=== PATIENT | male | born 2000 | race Two or more races ===

== ENCOUNTER 2019-01-31 23:05 | Emergency (ER) | payer OTHER ==
--- NOTE | 2019-02-01 00:36 | ED ---
GI/ HPI - HPI Summary HPI Summary: Patient complains of dull diffuse testicle pain starting this morning. Denies trauma, swelling, redness, fever, cough, sore throat, CP, SOB, N/V/D, abdominal pain, change in urine, change in BM, penile discharge. Denies prior history of same pain. Patient admits to frequent episodes of masturbation last night and this morning. Medical history is none. - History of Current Complaint Chief Complaint: EDUrogenitalProblems Time Seen by Provider: 02/01/19 00:24 Stated Complaint: GROIN PAIN PER PATIENT Hx Obtained From: Patient Onset/Duration: Started Hours Ago Timing: Constant Severity: Mild Current Severity: Mild Pain Intensity: 2 Additional Locations for Males: Testicles Pain Characteristics: Dull Associated Signs and Symptoms: Positive: Negative - Allergy/Home Medications Allergies/Adverse Reactions: Allergies Allergy/AdvReac Type Severity Reaction Status Date / Time peanut Allergy Vomiting Verified 01/31/19 23:09 Home Medications: Home Medications NK [No Home Medications Reported] 02/01/19 [History Confirmed 02/01/19] PMH/Surg Hx/FS Hx/Imm Hx Endocrine/Hematology History: Denies: Hx Anticoagulant Therapy Cardiovascular History: Denies: Hx Pacemaker/ICD History: Denies: Hx Dialysis Sensory History: Denies: Hx Eye Prosthesis Opthamlomology History: Denies: Hx Legally Blind EENT History: Denies: Hx Deafness Neurological History: Denies: Hx Dementia - Immunization History Immunizations Up to Date: Yes Infectious Disease History: No Infectious Disease History: Denies: Traveled Outside the [place] in Last 30 Days - Family History Known Family History: Positive: Non-Contributory - Social History Alcohol Use: Rare Substance Use Type: Reports: None Smoking Status (MU): Never Smoked Tobacco Review of Systems Constitutional: Negative Eyes: Negative ENT: Negative Cardiovascular: Negative Respiratory: Negative Gastrointestinal: Negative Positive: other Musculoskeletal: Negative Skin: Negative Neurological: Negative Psychological: Normal All Other Systems Reviewed And Are Negative: Yes Physical Exam Triage Information Reviewed: Yes Vital Signs On Initial Exam: Initial Vitals Temp Pulse Resp BP Pulse Ox 98.9 F 91 15 165/94 100 01/31/19 23:08 01/31/19 23:08 01/31/19 23:08 01/31/19 23:08 01/31/19 23:08 Vital Signs Reviewed: Yes Appearance: Positive: Well-Appearing Skin: Positive: Warm Head/Face: Positive: Normal Head/Face Inspection Eyes: Positive: Normal Neck: Positive: Supple Respiratory/Lung Sounds: Positive: Clear to Auscultation Cardiovascular: Positive: Normal Abdomen Description: Positive: Nontender Male Genital Exam: Positive: Normal Genitalia. Negative: Erythema, Hernia Mass , Inguinal Tenderness, Lesions, Scrotum Tenderness (R), Scrotum Tenderness (L), Testicular Tenderness (R), Testicular Tenderness (L), Urethral Discharge Musculoskeletal: Positive: Normal Neurological: Positive: Normal Psychiatric: Positive: Normal AVPU Assessment: Alert - Baldwin Coma Scale Best Eye Response: 4 - Spontaneous Best Motor Response: 6 - Obeys Commands Best Verbal Response: 5 - Oriented Coma Scale Total: 15 Procedures - Sedation Patient Received Moderate/Deep Sedation with Procedure: No Diagnostics - Vital Signs Vital Signs Temp Pulse Resp BP Pulse Ox 01/31/19 23:08 98.9 F 91 15 165/94 100 - Laboratory Lab Statement: Any lab studies that have been ordered have been reviewed, and results considered in the medical decision making process. GIGU Course/Dx - Course Course Of Treatment: Patient complains of dull diffuse testicle pain starting this morning. Denies trauma, swelling, redness, fever, cough, sore throat, CP, SOB, N/V/D, abdominal pain, change in urine, change in BM, penile discharge. Denies prior history of same pain. Patient admits to frequent episodes of masturbation last night and this morning. Medical history is none. Vital signs within normal limits. Physical exam normal. Pain likely secondary to excessive masturbation. - Diagnoses Provider Diagnoses: Testicle pain Discharge ED - Sign-Out/Discharge Documenting (check all that apply): Patient Departure - Discharge Plan Condition: Stable Disposition: HOME Patient Education Materials: Testicle Pain (ED) Referrals: [facility] [Primary Care Provider] - Additional Instructions: Take ibuprofen 600mg every 6 hrs for testicle pain if needed. Follow-up with primary care. - Billing Disposition and Condition Condition: STABLE Disposition: Home
[2019-02-01 00:45] VITALS: BP 120/59
== END 2019-02-01 00:46 | disposition home or self-care (01) ==
LOC: ED 23:05
DX: N50.819 Testicular pain, unspecified (principal)
CPT/HCPCS: 99282